=== PATIENT | male | born 2000 | race Caucasian/White ===

== ENCOUNTER 2020-09-16 | Emergency (ER) | payer SELFPAY | END 2020-09-16 01:54 | disposition home or self-care (01) | LOC: ERS | DX: F10.129 Alcohol abuse with intoxication, unspecified (principal) | CPT/HCPCS: 99281 ==

== ENCOUNTER 2021-01-21 02:19 | Emergency (ER) | payer BC, SELFPAY | END 2021-01-21 04:15 | disposition home or self-care (01) | LOC: ERS 02:19 | DX: F10.129 Alcohol abuse with intoxication, unspecified (principal) | CPT/HCPCS: 99284 ==

== ENCOUNTER 2022-05-13 02:59 | Emergency (ER) | payer SELFPAY | END 2022-05-13 04:15 | disposition home or self-care (01) | LOC: ERS 02:59 | DX: F10.129 Alcohol abuse with intoxication, unspecified (principal) | CPT/HCPCS: 99284 ==